=== PATIENT | female | born 1980 | race Caucasian/White ===

== ENCOUNTER 2017-11-10 08:44 | Emergency (ER) | payer OTHER ==
[2017-11-10 08:55] VITALS: RESP 18
[2017-11-10] MEDS ORDERED: IPRATROPIUM-ALBUTEROL 3 ML NEB INHALATION STA (09:07)
--- NOTE | 2017-11-10 09:09 | ED ---
URI HPI - General Chief Complaint: Upper Respiratory Infection Stated Complaint: SOB Time Seen by Provider: 11/10/17 09:03 Source: patient, RN notes reviewed Mode of arrival: ambulatory Limitations: no limitations - History of Present Illness Initial Comments: 37-year-old female presents emergency Department chief complaint of cough congestion and sinus congestion. Patient states that she has been sick for last 5-6 days progressively getting worse no relief of hoea-jwn-wltuaeg medications. She states usually has this once a year. She does have a history of COPD and continues to smoke. Patient has NO KNOWN DRUG ALLERGIES. Patient denies any known fever as felt that she actually had one. She states her cough is productive of phlegm at times and she has facial pressure. Patient denies any nausea vomiting diarrhea constipation. Patient denies any dizziness. - Related Data Home Medications Medication Instructions Recorded Confirmed diphenhydrAMINE [Benadryl] 25 mg PO QID PRN 11/10/17 11/10/17 Previous Rx's Medication Instructions Recorded Albuterol Sulfate [Proair Hfa] 1 - 2 puff INHALATION Q4HR PRN #1 11/10/17 inhaler Azithromycin [Zithromax Z-pack] 0 mg PO DIRECTED #1 pack 11/10/17 predniSONE 50 mg PO DAILY #5 tab 11/10/17 Allergies Allergy/AdvReac Type Severity Reaction Status Date / Time No Known Allergies Allergy Verified 11/10/17 09:18 Review of Systems ROS Statement: Those systems with pertinent positive or pertinent negative responses have been documented in the HPI. ROS Other: All systems not noted in ROS Statement are negative. Past Medical History Past Medical History: Asthma, COPD Additional Past Medical History / Comment(s): migraine History of Any Multi-Drug Resistant Organisms: None Reported Past Surgical History: Cholecystectomy Past Psychological History: No Psychological Hx Reported Smoking Status: Current every day smoker Past Alcohol Use History: Rare Past Drug Use History: Marijuana General Exam Limitations: no limitations General appearance: alert, in no apparent distress Head exam: Present: atraumatic, normocephalic, normal inspection Eye exam: Present: normal appearance, PERRL, EOMI. Absent: scleral icterus, conjunctival injection, periorbital swelling ENT exam: Present: mucous membranes moist, TM's normal bilaterally, normal external ear exam. Absent: normal oropharynx (Postnasal drainage) Neck exam: Present: normal inspection, full ROM. Absent: tenderness, meningismus, lymphadenopathy Respiratory exam: Present: wheezes (Bilateral throughout), decreased breath sounds. Absent: normal lung sounds bilaterally, respiratory distress, rales, rhonchi, stridor Cardiovascular Exam: Present: regular rate, normal rhythm, normal heart sounds. Absent: systolic murmur, diastolic murmur, rubs, gallop, clicks Neurological exam: Present: alert, oriented X3, CN II-XII intact Skin exam: Present: warm, dry, intact, normal color. Absent: rash Course Vital Signs 11/10/17 11/10/17 11/10/17 08:52 09:19 09:45 Temperature 98.7 F Pulse Rate 76 65 84 Respiratory 18 Rate Blood Pressure 164/94 O2 Sat by Pulse 98 Oximetry Medical Decision Making - Medical Decision Making 37-year-old female presents from for cough congestion sinus issues. Patient will be treated for acute bronchitis/COPD exacerbation. Patient placed on antibiotics, steroids. Return parameters were discussed. Patient was counseled in detail greater than 3 minutes regarding smoking cessation Disposition Clinical Impression: Bronchitis, COPD exacerbation, Sinus congestion Disposition: HOME SELF-CARE Condition: Stable Instructions: Upper Respiratory Infection (ED) Additional Instructions: Please return to the Emergency Department if symptoms worsen or any other concerns. Prescriptions: Albuterol Sulfate [Proair Hfa] 1 - 2 puff INHALATION Q4HR PRN #1 inhaler PRN Reason: difficulty in breathing Azithromycin [Zithromax Z-pack] 0 mg PO DIRECTED #1 pack predniSONE 50 mg PO DAILY #5 tab Is patient prescribed a controlled substance at d/c from ED?: No Referrals: Belinda Marquez MD [STAFF PHYSICIAN] - 1-2 days Time of Disposition: 10:40
--- NOTE | 2017-11-10 10:33 | XR ---
EXAMINATION TYPE: XR chest 2V DATE OF EXAM: 11/10/2017 COMPARISON: Prior chest x-ray 08/14/2015 HISTORY: Cough and congestion TECHNIQUE: Frontal and lateral views of the chest are obtained. FINDINGS: There is no focal air space opacity, pleural effusion, or pneumothorax seen. The cardiac silhouette size is within normal limits. The osseous structures are intact. There is some bronchial wall thickening. IMPRESSION: Correlate for bronchitis, reactive airways disease.
[2017-11-10 10:54] VITALS: BP 136/83; PULSE 79; TEMP 97.5
== END 2017-11-10 11:10 | disposition home or self-care (01) ==
LOC: EC 08:44
DX: J44.1 Chronic obstructive pulmonary disease with (acute) exacerbation (principal); R09.81 Nasal congestion; F17.200 Nicotine dependence, unspecified, uncomplicated
CPT/HCPCS: 71046; 94640; 99283; 99406

== ENCOUNTER 2018-08-29 22:29 | Emergency (ER) | payer OTHER ==
--- NOTE | 2018-08-29 23:19 | XR ---
EXAM: XR Chest, 2 Views CLINICAL HISTORY: ITS.REASON XR Reason: cough TECHNIQUE: Frontal and lateral views of the chest. COMPARISON: 11/10/17 chest x-ray IMPRESSION: Normal heart size. No consolidation or pleural effusion.
[2018-08-30] MEDS ORDERED: predniSONE 20 MG TAB PO STA (00:04)
[2018-08-30] MEDS ORDERED: IPRATROPIUM-ALBUTEROL 3 ML NEB INHALATION STA ×2 (00:04→00:39)
--- NOTE | 2018-08-30 00:09 | ED ---
General Adult HPI - General Chief complaint: Shortness of Breath Stated complaint: SOB Time Seen by Provider: 08/30/18 00:00 Source: patient Mode of arrival: ambulatory Limitations: no limitations - History of Present Illness Initial comments: 38-year-old female with a history of COPD and asthma presenting with progressive cough and shortness of breath that began today. She denies any fevers chills or chest pain. She denies history of intubation or chronic steroid use. Albuterol inhaler her father gave her that she has been using without relief. She does not have a nebulizer at home. She states her kids have been sick with similar symptoms. No history of PE/DVT, recent surgery, active cancer, hormone use. - Related Data Home Medications Medication Instructions Recorded Confirmed diphenhydrAMINE [Benadryl] 25 mg PO QID PRN 11/10/17 11/10/17 Previous Rx's Medication Instructions Recorded Albuterol Sulfate [Proair Hfa] 1 - 2 puff INHALATION Q4HR PRN #1 11/10/17 inhaler Azithromycin [Zithromax Z-pack] 0 mg PO DIRECTED #1 pack 11/10/17 Fluconazole [Diflucan] 150 mg PO ONCE #2 tab 11/10/17 predniSONE 50 mg PO DAILY #5 tab 11/10/17 Albuterol Inhaler [Ventolin Hfa 1 - 2 puff INHALATION RT-Q6H PRN 08/30/18 Inhaler] #1 inhaler Codeine Phosphate/Guaifenesin 10 ml PO Q6H PRN 3 Days #120 ml 08/30/18 [Guaifen-Codeine 100-10 mg/5 ml] Ipratropium-Albuterol Nebulize 3 ml INHALATION Q4-6H PRN #20 neb 08/30/18 [Duoneb 0.5 mg-3 mg/3 ml Soln] predniSONE [Deltasone] 40 mg PO DAILY 5 Days #10 tablet 08/30/18 Allergies Allergy/AdvReac Type Severity Reaction Status Date / Time No Known Allergies Allergy Verified 08/29/18 22:56 Review of Systems ROS Statement: Those systems with pertinent positive or pertinent negative responses have been documented in the HPI. Review of Systems Constitutional: Denies fever, chills Eyes: Denies change in vision, Denies pain Ears, nose, mouth, throat: Denies headaches, Denies sore throat Cardiovascular: Denies chest pain. Denies palpitations Respiratory: Positive shortness of breath, positive cough Gastrointestinal: Denies abdominal pain. Denies nausea, vomiting, diarrhea. Genitourinary: Denies hematuria, Denies infections Musculoskeletal: Denies pain, Denies swelling Integumentary: Denies rash Neurological: Denies headache, focal weakness, focal numbness Psychiatric: Denies anxiety, Denies depression Hematologic/Lymphatic: Denies easy bleeding or bruising ROS Other: All systems not noted in ROS Statement are negative. Past Medical History Past Medical History: Asthma, COPD Additional Past Medical History / Comment(s): migraine, History of Any Multi-Drug Resistant Organisms: None Reported Past Surgical History: Cholecystectomy Past Psychological History: No Psychological Hx Reported Smoking Status: Current every day smoker Past Alcohol Use History: Rare Past Drug Use History: Marijuana General Exam - General Exam Comments Initial Comments: General: Awake, alert, No acute Distress HENT: Normocephalic. Atraumatic Eyes: PERRL. EOMI. No scleral icterus. No injected conjunctiva Neck: Full ROM Chest/Lungs: Tight breath sounds with bibasilar wheezing bilaterally. 3 word conversational dyspnea. Cardiac: Regular rate, rhythm. No murmurs or rubs Abdomen/GI: Soft, nontender, nondistended. No rebound, guarding, or rigidity. Musculoskeletal: Full ROM Skin: Warm, dry, intact Neurologic: A/Ox3, no weakness, no sensory deficit, no abnormal gait, no coordination deficit Limitations: no limitations Course Vital Signs 08/29/18 08/30/18 08/30/18 22:52 00:32 00:36 Temperature 98.8 F Pulse Rate 80 80 84 Respiratory 24 Rate Blood Pressure 153/90 O2 Sat by Pulse 95 Oximetry 08/30/18 08/30/18 00:50 00:57 Temperature Pulse Rate 84 88 Respiratory Rate Blood Pressure O2 Sat by Pulse Oximetry Medical Decision Making - Medical Decision Making 38-year-old female presenting with cough. Initial exam the patient is awake alert and she has wheezing bilaterally and has 3 word conversational dyspnea. She has no chest pain and she is perc negative. Chest x-ray and influenza swabs are negative. Her symptoms improved with steroids and breathing treatments. The patient was given a dose of Motrin and Robitussin while in the department. She was given prescriptions for nebulizer with nebulized DuoNeb's, as well as prednisone, and a cough suppressant. At this time patient's symptoms are likely secondary to bronchitis.No further emergent workup indicated. The patient was given return to ED instructions. They were instructed to follow up with their primary care provider. Stable for discharge at this time. - Lab Data Lab Results 08/29/18 Range/Units 22:56 Influenza Type A RNA Not Detected (Not Detectd) Influenza Type B (PCR) Not Detected (Not Detectd) Disposition Clinical Impression: Bronchitis Disposition: HOME SELF-CARE Condition: Good Instructions (If sedation given, give patient instructions): Acute Bronchitis (ED) Prescriptions: predniSONE [Deltasone] 40 mg PO DAILY 5 Days #10 tablet Ipratropium-Albuterol Nebulize [Duoneb 0.5 mg-3 mg/3 ml Soln] 3 ml INHALATION Q4-6H PRN #20 neb PRN Reason: Shortness Of Breath Codeine Phosphate/Guaifenesin [Guaifen-Codeine 100-10 mg/5 ml] 10 ml PO Q6H PRN 3 Days #120 ml PRN Reason: Cough Albuterol Inhaler [Ventolin Hfa Inhaler] 1 - 2 puff INHALATION RT-Q6H PRN #1 inhaler PRN Reason: Shortness Of Breath Is patient prescribed a controlled substance at d/c from ED?: Yes When asked, does pt state using other controlled substances?: No If prescribed controlled substance>3 days was MAPS reviewed?: Prescribed <3 Days If Rx opioid, was Start Talking consent form obtained?: Yes Referrals: None,Stated [Primary Care Provider] - 1-2 days Abelino Wilburn MD [Medical Doctor] - 1-2 days
[2018-08-30] MEDS ORDERED: IBUPROFEN 600 MG TAB PO STA (01:12)
[2018-08-30] MEDS ORDERED: guaiFENesin SYRUP 100MG/5ML 200 MG/10 ML CUP PO STA (01:12)
[2018-08-30 01:42] VITALS: BP 163/95; PULSE 80; RESP 18; TEMP 98.5
== END 2018-08-30 01:44 | disposition home or self-care (01) ==
LOC: EC 22:29
DX: J44.9 Chronic obstructive pulmonary disease, unspecified (principal); F17.200 Nicotine dependence, unspecified, uncomplicated; Z79.51 Long term (current) use of inhaled steroids; Z79.899 Other long term (current) drug therapy
CPT/HCPCS: 94640 ×2; 87502; 71046; 99285; J7512

== ENCOUNTER 2019-05-13 02:09 | Emergency (ER) | payer OTHER ==
[2019-05-13 02:16] VITALS: BP 132/87; PULSE 88; RESP 18; TEMP 98.9
[2019-05-13] MEDS ORDERED: KETOROLAC 30 MG/ML 1 ML VIAL IM STA (02:28)
[2019-05-13] MEDS ORDERED: ACET/COD 300 MG/30 MG STARTER PACK 6 TAB BTL PO STA (02:28)
[2019-05-13] MEDS ORDERED: DIAZEPAM 5 MG/ML 2 ML INJ IM ONE (02:28)
--- NOTE | 2019-05-13 02:33 | ED ---
Back Pain HPI - General Chief Complaint: Back Pain/Injury Stated Complaint: Back Pain Time Seen by Provider: 05/13/19 02:21 Source: patient Limitations: no limitations - History of Present Illness Initial Comments: 39-year-old female patient presents to the emergency department today for evaluation of mid right-sided back pain. Patient states that to 2 days ago she was bent over lifting up a lamp. States she didn't realize how heavy the lamp wasn't strained her right back. She states she has been taking aspirin without relief. States the pain worsens whenever she moves around or reaches with the right arm. She denies any falls or direct impact to the back. Denies any radiating pain down the arms or legs. Denies any loss of bowel or bladder control. Denies any saddle anesthesia. Patient denies any headache, neck pain, chest pain, shortness of breath, dizziness, weakness, abdominal pain, nausea, vomiting, or difficulties with bowel movements or urination. - Related Data Home Medications Medication Instructions Recorded Confirmed diphenhydrAMINE [Benadryl] 25 mg PO QID PRN 11/10/17 11/10/17 Previous Rx's Medication Instructions Recorded Albuterol Sulfate [Proair Hfa] 1 - 2 puff INHALATION Q4HR PRN #1 11/10/17 inhaler Azithromycin [Zithromax Z-pack] 0 mg PO DIRECTED #1 pack 11/10/17 Fluconazole [Diflucan] 150 mg PO ONCE #2 tab 11/10/17 predniSONE 50 mg PO DAILY #5 tab 11/10/17 Albuterol Inhaler [Ventolin Hfa 1 - 2 puff INHALATION RT-Q6H PRN 08/30/18 Inhaler] #1 inhaler Codeine Phosphate/Guaifenesin 10 ml PO Q6H PRN 3 Days #120 ml 08/30/18 [Guaifen-Codeine 100-10 mg/5 ml] Ipratropium-Albuterol Nebulize 3 ml INHALATION Q4-6H PRN #20 neb 08/30/18 [Duoneb 0.5 mg-3 mg/3 ml Soln] predniSONE [Deltasone] 40 mg PO DAILY 5 Days #10 tablet 08/30/18 Cyclobenzaprine [Flexeril] 10 mg PO TID #15 tab 05/13/19 Ibuprofen [Motrin] 600 mg PO Q8HR PRN #30 tab 05/13/19 Allergies Allergy/AdvReac Type Severity Reaction Status Date / Time No Known Allergies Allergy Verified 05/13/19 02:16 Review of Systems ROS Statement: Those systems with pertinent positive or pertinent negative responses have been documented in the HPI. ROS Other: All systems not noted in ROS Statement are negative. Past Medical History Past Medical History: Asthma, COPD Additional Past Medical History / Comment(s): migraine, History of Any Multi-Drug Resistant Organisms: None Reported Past Surgical History: Cholecystectomy Past Psychological History: No Psychological Hx Reported Smoking Status: Current every day smoker Past Alcohol Use History: Rare Past Drug Use History: Marijuana General Exam Limitations: no limitations General appearance: alert, in no apparent distress, other (This is a well- developed, well-nourished adult female patient in no acute distress. Vital signs upon presentation are temperature 98.9F, pulse 88, respirations 18, blood pressure 132/87, pulse ox 96% on room air.) Eye exam: Present: normal appearance ENT exam: Present: normal exam, normal oropharynx, mucous membranes moist Respiratory exam: Present: normal lung sounds bilaterally. Absent: respiratory distress, wheezes, rales, rhonchi, stridor Cardiovascular Exam: Present: regular rate, normal rhythm, normal heart sounds. Absent: systolic murmur, diastolic murmur, rubs, gallop, clicks GI/Abdominal exam: Present: soft, normal bowel sounds. Absent: distended, tenderness, guarding, rebound, rigid Back exam: Present: normal inspection, muscle spasm (Right thoracic paraspinal spasm), paraspinal tenderness Neurological exam: Present: alert, oriented X3, CN II-XII intact Psychiatric exam: Present: normal affect, normal mood Skin exam: Present: warm, dry, intact, normal color. Absent: rash Course Vital Signs 05/13/19 02:14 Temperature 98.9 F Pulse Rate 88 Respiratory 18 Rate Blood Pressure 132/87 O2 Sat by Pulse 96 Oximetry Medical Decision Making - Medical Decision Making 39-year-old female patient presents the emergency department today for evaluation of right mid back pain. Physical examination did reveal muscle spasm to the right thoracic paraspinal muscles. No CVA tenderness. She denies urinary symptoms. She is afebrile was soft nontender abdomen. Patient symptoms and findings consistent with muscle spasm. We will treat with anti- inflammatories and muscle relaxers. She is educated regarding range of motion exercises and heat application. She is instructed to follow-up with her primary care physician for recheck in 1-2 days. Return parameters were discussed in detail. She verbalizes understanding and agrees with this plan. Disposition Clinical Impression: Muscle spasm of back Disposition: HOME SELF-CARE Condition: Good Instructions (If sedation given, give patient instructions): Muscle Spasm (ED), Back Pain (ED) Additional Instructions: Perform gentle range of motion exercises. Apply warmth to the area 20 minutes at a time at least 3-4 times daily. Take medications as directed. Follow-up with your primary care physician for recheck in 1-2 days. Return to the emergency department immediately for any new, worsening, or concerning symptoms. Prescriptions: Cyclobenzaprine [Flexeril] 10 mg PO TID #15 tab Ibuprofen [Motrin] 600 mg PO Q8HR PRN #30 tab PRN Reason: Pain Is patient prescribed a controlled substance at d/c from ED?: No Referrals: Christina Jennings DO [Primary Care Provider] - 1-2 days Time of Disposition: 02:33
== END 2019-05-13 02:47 | disposition home or self-care (01) ==
LOC: EC 02:09
DX: M62.830 Muscle spasm of back (principal); F17.200 Nicotine dependence, unspecified, uncomplicated
CPT/HCPCS: 99283; 96372 ×2; J3360; J1885

== ENCOUNTER 2020-03-25 16:33 | Emergency (ER) | payer OTHER ==
[2020-03-25 16:44] VITALS: RESP 18
[2020-03-25] MEDS ORDERED: KETOROLAC 15 MG/ML 1 ML VIAL IVP STA (17:31)
[2020-03-25] MEDS ORDERED: ONDANSETRON 4 MG/2 ML VIAL IVP STA (17:32)
[2020-03-25] MEDS ORDERED: SODIUM CHLORIDE 0.9% 500 ML 500 ML IV ONE (17:33)
[2020-03-25] MEDS ORDERED: HYDROmorphone 0.5 MG/0.5 ML SYRINGE IVP STA (17:33)
--- NOTE | 2020-03-25 18:28 | ED ---
Headache HPI - General Chief Complaint: Headache Stated Complaint: migraine Time Seen by Provider: 03/25/20 16:48 Mode of arrival: ambulatory Limitations: no limitations - History of Present Illness Initial Comments: 39yo female presents for cc of headache. hx of tension migraines. states feels similar to her tension migraines except she feels like she has some facial pressure. denies visual changes, denies speech changes weakness of the left upper lower extremities. She denies any head injuries she denies any history of aneurysm. denies fevers, endorses some congestion. Pt states headache was gradual onset and on and off since . Patient denies sudden onset or this being the most intesive headache of life, denies thunder clap headahce. Patient appears well in good, jovial spirits on arrival. - Related Data Home Medications Medication Instructions Recorded Confirmed diphenhydrAMINE [Benadryl] 25 mg PO QID PRN 11/10/17 11/10/17 Previous Rx's Medication Instructions Recorded Albuterol Sulfate [Proair Hfa] 1 - 2 puff INHALATION Q4HR PRN #1 11/10/17 inhaler Azithromycin [Zithromax Z-pack (6 0 mg PO DIRECTED #1 pack 11/10/17 tabs)] Fluconazole [Diflucan] 150 mg PO ONCE #2 tab 11/10/17 predniSONE 50 mg PO DAILY #5 tab 11/10/17 Albuterol Inhaler (Mhu) [Ventolin 1 - 2 puff INHALATION RT-Q6H PRN 08/30/18 Hfa Inhaler (Mhu)] #1 inhaler Codeine Phosphate/Guaifenesin 10 ml PO Q6H PRN 3 Days #120 ml 08/30/18 [Guaifen-Codeine 100-10 mg/5 ml] Ipratropium-Albuterol Nebulize 3 ml INHALATION Q4-6H PRN #20 neb 08/30/18 [Duoneb 0.5 mg-3 mg/3 ml Soln] predniSONE [Deltasone] 40 mg PO DAILY 5 Days #10 tablet 08/30/18 Cyclobenzaprine [Flexeril] 10 mg PO TID #15 tab 05/13/19 Ibuprofen [Motrin] 600 mg PO Q8HR PRN #30 tab 05/13/19 Oxymetazoline HCl [Afrin 0.05%] 1 spray EA NOSTRIL BID 3 Days #15 03/25/20 ml Allergies Allergy/AdvReac Type Severity Reaction Status Date / Time No Known Allergies Allergy Verified 03/25/20 16:44 Review of Systems ROS Statement: Those systems with pertinent positive or pertinent negative responses have been documented in the HPI. ROS Other: All systems not noted in ROS Statement are negative. Past Medical History Past Medical History: Asthma, COPD Additional Past Medical History / Comment(s): migraine, History of Any Multi-Drug Resistant Organisms: None Reported Past Surgical History: Cholecystectomy Past Psychological History: No Psychological Hx Reported Smoking Status: Current every day smoker Past Alcohol Use History: Rare Past Drug Use History: Marijuana General Exam - General Exam Comments Initial Comments: General: The patient is awake and alert, in no distress, and does not appear acutely ill. Eye: +3 mm pupils are equal, round and reactive to light, extra-ocular movements are intact. No nystagmus. There is normal conjunctiva bilaterally. No signs of icterus. Ears, nose, mouth and throat: There are moist mucous membranes and no oral lesions. Neck: The neck is supple, there is no tenderness or JVD. No nuchal rigidity Cardiovascular: There is a regular rate and rhythm. No murmur, rub or gallop is appreciated. Respiratory: Lungs are clear to auscultation, respirations are non-labored, breath sounds are equal. No wheezes, stridor, rales, or rhonchi. Musculoskeletal: Normal ROM, no tenderness. Strength 5/5. Sensation intact. Pulses equal bilaterally 2+. Neurological: A&O x 3. CN II-XII intact, no pronator drip finger to nose and hand flap smooth and coordinated. Patient is full strength of the upper and lower extremities. Gait without ataxia. Sensation of the upper lower extremity is equal and comparison bilaterally.. No nystagmus. IOP 11 OU. Patient has maxillary sinus tenderness. no finger agnosia or hemineglect. Skin: Skin is warm and dry and no rashes or lesions are noted. Psychiatric: Cooperative, appropriate mood & affect, normal judgment. Limitations: no limitations Course Vital Signs 03/25/20 16:41 Temperature 98.4 F Pulse Rate 78 Respiratory 18 Rate Blood Pressure 199/85 O2 Sat by Pulse 97 Oximetry Medical Decision Making - Medical Decision Making 39yo hx of migraines. states feels similar but wiht more sinus pressure and some congestion there is no focalizing neurological symptoms. no fevers. Patient has maxillary sinus pressure on exam more left sided than right. IOP WNL. patient symptoms improved aside from sinus pressure after medications, states she is feeling better overall and ready to go home. patietn will be dsicharge with strict return parameters for fevers, worsenign symptoms. patient discharged appearing well. Disposition Clinical Impression: Headache, Sinus pressure Disposition: HOME SELF-CARE Condition: Good Instructions (If sedation given, give patient instructions): Acute Headache (ED) Additional Instructions: Please use medication as discussed. Please follow-up with family doctor in the next 2 days Please return to emergency room if the symptoms increase or worsen or for any other concerns. Prescriptions: Oxymetazoline HCl [Afrin 0.05%] 1 spray EA NOSTRIL BID 3 Days #15 ml Is patient prescribed a controlled substance at d/c from ED?: No Referrals: Christina Jennings DO [Primary Care Provider] - 1-2 days Time of Disposition: 18:42
[2020-03-25 18:51] VITALS: BP 168/99; PULSE 68; TEMP 98.1
== END 2020-03-25 18:51 | disposition home or self-care (01) ==
LOC: EC 16:33
DX: J34.89 Other specified disorders of nose and nasal sinuses (principal); F17.200 Nicotine dependence, unspecified, uncomplicated; R51.9 Headache, unspecified
CPT/HCPCS: 99283 ×2; 96374 ×2; 96375 ×3; 96361 ×2; J2405; J1885; J1170

== ENCOUNTER 2020-03-25 23:57 | Emergency (ER) | payer OTHER ==
[2020-03-26] MEDS ORDERED: diphenhydrAMINE 50 MG/ML 1 ML VIAL IVP STA (00:19)
[2020-03-26] MEDS ORDERED: METOCLOPRAMIDE 5 MG/ML 2 ML VIAL IVP STA (00:19)
[2020-03-26] MEDS ORDERED: SODIUM CHLORIDE 0.9% 500 ML 500 ML IV ONE (00:23)
[2020-03-26] MEDS ORDERED: HYDROmorphone 1 MG/ML 1 ML SYRINGE IVP STA (01:38)
--- NOTE | 2020-03-26 01:53 | ED ---
Headache HPI - General Chief Complaint: Headache Stated Complaint: Headache Time Seen by Provider: 03/26/20 00:16 Mode of arrival: ambulatory Limitations: no limitations - History of Present Illness Initial Comments: Mayte is a 39-year-old female with history of migraines who presents to the ER today for reevaluation of migraine headache. Patient was seen and evaluated yesterday during the day, she is treated symptomatically had improvement in her headache and went home however tonight patient had worsening headache and an episode of nausea and vomiting which prompted her return to ER. Patient presents the headache is right-sided, associated with sinus pressure no vision changes, this was not a sudden onset headache not the worsening of her life not thunderclap, not associated with any focal neurologic deficits or fever. - Related Data Home Medications Medication Instructions Recorded Confirmed diphenhydrAMINE [Benadryl] 25 mg PO QID PRN 11/10/17 11/10/17 Previous Rx's Medication Instructions Recorded Albuterol Sulfate [Proair Hfa] 1 - 2 puff INHALATION Q4HR PRN #1 11/10/17 inhaler Azithromycin [Zithromax Z-pack (6 0 mg PO DIRECTED #1 pack 11/10/17 tabs)] Fluconazole [Diflucan] 150 mg PO ONCE #2 tab 11/10/17 predniSONE 50 mg PO DAILY #5 tab 11/10/17 Albuterol Inhaler (Mhu) [Ventolin 1 - 2 puff INHALATION RT-Q6H PRN 08/30/18 Hfa Inhaler (Mhu)] #1 inhaler Codeine Phosphate/Guaifenesin 10 ml PO Q6H PRN 3 Days #120 ml 08/30/18 [Guaifen-Codeine 100-10 mg/5 ml] Ipratropium-Albuterol Nebulize 3 ml INHALATION Q4-6H PRN #20 neb 08/30/18 [Duoneb 0.5 mg-3 mg/3 ml Soln] predniSONE [Deltasone] 40 mg PO DAILY 5 Days #10 tablet 08/30/18 Cyclobenzaprine [Flexeril] 10 mg PO TID #15 tab 05/13/19 Ibuprofen [Motrin] 600 mg PO Q8HR PRN #30 tab 05/13/19 Oxymetazoline HCl [Afrin 0.05%] 1 spray EA NOSTRIL BID 3 Days #15 03/25/20 ml Allergies Allergy/AdvReac Type Severity Reaction Status Date / Time No Known Allergies Allergy Verified 03/26/20 00:11 Review of Systems ROS Statement: Those systems with pertinent positive or pertinent negative responses have been documented in the HPI. ROS Other: All systems not noted in ROS Statement are negative. Past Medical History Past Medical History: Asthma, COPD Additional Past Medical History / Comment(s): migraine, History of Any Multi-Drug Resistant Organisms: None Reported Past Surgical History: Cholecystectomy Past Psychological History: No Psychological Hx Reported Smoking Status: Current every day smoker Past Alcohol Use History: Rare Past Drug Use History: Marijuana General Exam - General Exam Comments Initial Comments: Physical Exam GENERAL: Patient is well-developed and well-nourished. Patient is nontoxic and well-hydrated and is in no distress. HENT: Normocephalic, Atraumatic. EYES: PERRL, EOMI PULMONARY: Unlabored respirations. CARDIOVASCULAR: RRR Warm and well perfused extremities ABDOMEN: Non-distended SKIN: No rashes or bruising : Deferred NEUROLOGIC: Alert and oriented Normal speech Normal gait MUSCULOSKELETAL: Moving all extremities with no apparent injury PSYCHIATRIC: No SI/HI Limitations: no limitations Course Vital Signs 03/26/20 03/26/20 03/26/20 00:03 01:30 02:30 Temperature 98.9 F 98.3 F 98.4 F Pulse Rate 70 75 82 Respiratory 16 16 18 Rate Blood Pressure 186/94 169/90 155/92 O2 Sat by Pulse 97 97 98 Oximetry 03/26/20 03:00 Temperature 98.2 F Pulse Rate 85 Respiratory 18 Rate Blood Pressure 170/85 O2 Sat by Pulse 98 Oximetry Medical Decision Making - Medical Decision Making The patient was seen and evaluated history is obtained from patient Patient's headache was again treated symptomatically however she had persistent headache and decision was made to obtain a computed tomography scan and give additional medications Computed tomography scan had no acute findings Patient resolution of her headache after second dose of medications and was comfortable the plan for discharge home On further questioning patient does admit that she sits in front of a computer all day and has not had her glasses updated for a half to 2 years and likely needs a new prescription. Advised patient this likely contributed to her headaches. Recommended continued outpatient follow-up. Disposition Clinical Impression: Headache Disposition: HOME SELF-CARE Condition: Stable Additional Instructions: As discussed earlier continue the nasal spray Make sure you are well hydrated and getting plenty of rest Get your vision checked by a doctor to make sure eye strain isn't contributing to your headaches Follow up with a neurologist Return to the ER for any worsening Is patient prescribed a controlled substance at d/c from ED?: No When asked, does pt state using other controlled substances?: No Referrals: None,Stated [Primary Care Provider] - 1-2 days Kacy Callejas MD [Medical Doctor] - 1-2 days Jered Luu MD [STAFF PHYSICIAN] - 1-2 days Georgina Valerio MD [REFERRING] - 1-2 days
--- NOTE | 2020-03-26 02:31 | CT ---
EXAMINATION TYPE: CT brain wo con DATE OF EXAM: 03/26/2020 COMPARISON: None HISTORY: HEADACHE CT DLP: 1066.4 mGycm Automated exposure control for dose reduction was used. The ventricles and sulci appear normal. There is no mass effect nor midline shift. There is no sign o f intracranial hemorrhage. Calvarium is intact. There is no evidence of cerebral edema. IMPRESSION: Normal unenhanced head CT scan.
[2020-03-26 03:57] VITALS: RESP 18
[2020-03-26 03:58] VITALS: BP 170/85; PULSE 85; TEMP 98.2
== END 2020-03-26 03:45 | disposition home or self-care (01) ==
LOC: EC 23:57
DX: R51.9 Headache, unspecified (principal); R11.2 Nausea with vomiting, unspecified; F17.200 Nicotine dependence, unspecified, uncomplicated; Z86.69 Personal history of other diseases of the nervous system and sense organs
CPT/HCPCS: 99284 ×2; 96374 ×2; 96375 ×3; 96361 ×2; 70450; J1200; J2765; J1170